=== PATIENT | female | born 1980 ===

== ENCOUNTER 2018-12-30 00:50 | Emergency (ER) | payer SELFPAY ==
[2018-12-30 02:11] VITALS: BP 150/79; PULSE 80; RESP 16; TEMP 97.8; O2SAT 99
--- NOTE | 2018-12-30 03:58 | ED PDOC ---
Lower Extremity Pain/Injury Chief Complaint (Provider): right knee pain History Per: Patient History/Exam Limitations: no limitations Onset/Duration Of Symptoms: Days (1 month) Current Symptoms Are (Timing): Still Present Additional Complaint(s): 38 y/o female presents for evaluation of atraumatic right knee pain x 1 month. Patient states unable to fully extend or bend due to pain. Patient reports associated lower leg pain and states sometimes the leg "swells up". Denies fever, chest pain, shortness of breath, palpitations, numbness/weakness right lower extremity. Limited improvement with Tylenol. <Shawna Seaman - Last Filed: 12/30/18 05:12> <Figueroa Gandara - Last Filed: 12/30/18 05:59> Time Seen by Provider: 12/30/18 02:30 Chief Complaint (Nursing): Lower Extremity Problem/Injury Past Medical History Reviewed: Historical Data, Nursing Documentation, Vital Signs Vital Signs: Last Vital Signs Temp 97.8 F 12/30/18 02:06 Pulse 80 12/30/18 02:06 Resp 16 12/30/18 02:06 BP 150/79 12/30/18 02:06 Pulse Ox 99 12/30/18 02:06 - Medical History PMH: Diabetes - Surgical History Surgical History: No Surg Hx - Family History Family History: States: No Known Family Hx - Living Arrangements Living Arrangements: With Family <Shawna Seaman - Last Filed: 12/30/18 05:12> Vital Signs: Last Vital Signs Temp 97.8 F 12/30/18 02:06 Pulse 80 12/30/18 02:06 Resp 16 12/30/18 02:06 BP 150/79 12/30/18 02:06 Pulse Ox 99 12/30/18 05:25 <Figueroa Gandara - Last Filed: 12/30/18 05:59> - Allergies Allergies/Adverse Reactions: Allergies Allergy/AdvReac Type Severity Reaction Status Date / Time apricot Allergy RASH Verified 12/30/18 02:14 edgar Allergy RASH Verified 12/30/18 02:14 kiwi Allergy RASH Verified 12/30/18 02:14 Review of Systems ROS Statement: Except As Marked, All Systems Reviewed And Found Negative Musculoskeletal: Positive for: Leg Pain (right knee, right leg) <Shawna Seaman - Last Filed: 12/30/18 05:12> Physical Exam - Reviewed Nursing Documentation Reviewed: Yes Vital Signs Reviewed: Yes - Physical Exam Appears: Positive for: Well, Non-toxic, No Acute Distress Cardiovascular/Chest: Positive for: Regular Rate, Rhythm Respiratory: Positive for: Normal Breath Sounds Pulses-Dorsalis Pedis (L): 2+ Pulses-Dorsalis Pedis (R): 2+ Pulses-Post. Tibialis (L): 2+ Pulses-Post. Tibialis (R): 2+ Extremity: Positive for: Normal ROM, Tenderness (medial/lateral aspects right knee without edema/deformity. Neg varus/valgus stress. Pain with full flexion/extension. + tenderness right anterior lower leg without erythema/edema. distal NV/motor intact), Calf Tenderness (upper right). Negative for: Swelling Neurological/Psych: Positive for: Awake, Alert, Oriented (x3) <Shawna Seaman - Last Filed: 12/30/18 05:12> - ECG O2 Sat by Pulse Oximetry: 99 - Other Rad xray right knee X-Ray: Viewed By Mt X-Ray Interpretation: no acute findings - Progress ED Course And Treament: -upreg -accucheck -right knee xray -RLE duplex -Toradol IM Right lower extremity venous duplex. Indication: Right leg pain and swelling. Findings: Real-time ultrasound images of the deep venous system with Doppler evaluation. Normal compression, spontaneity and augmentation. Normal color Doppler. No intraluminal thrombus is seen. IMPRESSION: No evidence of deep venous thrombosis Glucose elevated; labs, IV NS bolus ordered NABEEL wrap applied to right knee <Shawna Seaman - Last Filed: 12/30/18 05:12> - Laboratory Results Result Diagrams: 12/30/18 05:22 12/30/18 05:40 <Figueroa Gandara - Last Filed: 12/30/18 05:59> Medical Decision Making Medical Decision Makin Patient pending CBC results, resting comfortably in room at this time. [id number] Labs reviewed, normal WBC count, no clinically significant abnormalities noted. Patient prescribed naproxen for pain; informed to follow up with PMD/Orthopedist, referral provided. Stable for d/c home. Scribe Attestation: Documented by Meera Wong, acting as a scribe for Figueroa Gandara MD. Provider Scribe Attestation: All medical record entries made by the Scribe were at my direction and personally dictated by me. I have reviewed the chart and agree that the record accurately reflects my personal performance of the history, physical exam, medical decision making, and the department course for this patient. I have also personally directed, reviewed, and agree with the discharge instructions and disposition. <Figueroa Gandara - Last Filed: 12/30/18 05:59> Disposition - Patient ED Disposition Is Patient to be Admitted: No Counseled Patient/Family Regarding: Studies Performed, Diagnosis, Need For Followup - Disposition Disposition Time: 05:12 Patient Signed Over To: Figueroa Gandara Handoff Comments: pending labs, repeat accucheck <Shawna Seaman - Last Filed: 12/30/18 05:12> - Disposition Disposition: Routine/Home Disposition Time: 05:58 <iFgueroa Gandara - Last Filed: 12/30/18 05:59> - Clinical Impression Clinical Impression: Knee pain, Hyperglycemia - Disposition Referrals: Poncho Pacheco III, MD [Staff Provider] - Condition: STABLE Forms: [employer] (Azeri)
[2018-12-30] MEDS ORDERED: Sodium Chloride 0.9% 1,000 ML IV STA (05:07)
[2018-12-30 05:29] LABS: BASO # 0.1 K/uL (0.0-0.2); EOS # 0.1 K/uL (0.0-0.7); EOS % 1.4 % (0.0-4.0); HEMOGLOBIN 13.7 g/dL (12.0-16.0); LYMPH # 3.9 K/uL (1.0-4.3); LYMPH % 42.8 % (20.0-40.0); MEAN CELL VOLUME 88.3 fl (81.0-99.0); MEAN CORPUSCULAR HEMOGLOBIN 30.3 pg (27.0-31.0); MEAN CORPUSCULAR HGB CONC 34.3 g/dL (33.0-37.0); MEAN PLATELET VOLUME 8.1 fl (7.2-11.7); MONO # 0.8 K/uL (0.0-0.8); MONO % 8.4 % (0.0-10.0); NEUT # 4.2 K/uL (1.8-7.0); NEUT % 46.4 % (50.0-75.0); NRBC % 0.1 % (0.0-0.0); RBC 4.52 Mil/uL (3.80-5.20); RED CELL DISTRIBUTION WIDTH 13.1 % (11.5-14.5); WHITE BLOOD COUNT 9.1 K/uL (4.8-10.8)
[2018-12-30 05:55] LABS: ALB/GLOB RATIO 1.2 (1.0-2.1); ALBUMIN 3.8 g/dL (3.5-5.0); ALT/SGPT 30 U/L (9-52); AST/SGOT 19 U/L (14-36); BLOOD UREA NITROGEN 17 mg/dl (7-17); CALCIUM 9.1 mg/dL (8.4-10.2); GFR NON-AFRICAN AMERICAN > 60
--- NOTE | 2018-12-30 09:44 | US ---
Date of service: 12/30/2018 PROCEDURE: Right lower extremity venous duplex Doppler. HISTORY: pain/swelling right LE COMPARISON: None available. TECHNIQUE: Common femoral, superficial femoral, popliteal and posterior tibial veins were evaluated. Flow was assessed with color Doppler, compressibility, assessment of phasic flow and augmentation response. FINDINGS: COMMON FEMORAL VEIN: Unremarkable. SUPERFICIAL FEMORAL VEIN: Unremarkable. POPLITEAL VEIN: Unremarkable. POSTERIOR TIBIAL VEIN: Unremarkable. OTHER FINDINGS: None. IMPRESSION: No evidence of deep venous thrombosis in the right lower extremity. The preliminary findings for this examination were reported by [facility] at 4:03 a.m. on 12/30/2018. There is concurrence of this report with the preliminary findings.
--- NOTE | 2018-12-30 11:02 | RAD ---
Date of service: 12/30/2018 PROCEDURE: Right Knee Radiographs. HISTORY: atraumatic pain COMPARISON: None. TECHNIQUE: 3 views obtained. FINDINGS: BONES: Bone alignment and mineralization are normal. There is no acute displaced fracture or bone destruction. JOINTS: There is degenerative osteoarthrosis in the medial compartment with reduced joint space, marginal osteophytes and tibial spiking. JOINT EFFUSION: There is a small suprapatellar joint effusion. OTHER FINDINGS: None. IMPRESSION: No acute displaced fracture or dislocation. 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 Small suprapatellar joint effusion.
== END 2018-12-30 06:30 | disposition home or self-care (01) ==
LOC: H.ER 00:50
DX: M25.561 Pain in right knee (principal); E11.65 Type 2 diabetes mellitus with hyperglycemia
CPT/HCPCS: 73562; 80053; 81025; 82948; 85025; 93971; 96360; 96372; 99283; J1885; J7030